=== PATIENT | male | born 1970 | race Caucasian/White ===

== ENCOUNTER 2020-11-29 20:25 | Inpatient (IN) | payer MEDICARE, MEDICAID, SELFPAY ==
[2020-11-29 22:00] VITALS: BP 120/77; PULSE 101; RESP 23; TEMP 37.2; O2SAT 92
--- NOTE | 2020-11-29 23:50 | PC.NURSE ---
Skin assessment bilateral tidwell to ankle redness noted, pt states he has Hx of MRSA.
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
[2020-11-30 06:00] VITALS: BP 117/73; PULSE 86; RESP 16; TEMP 36.8; O2SAT 96
--- NOTE | 2020-11-30 08:34 | PC.NUTR ---
Addendum entered by Tevin Riojas 11/30/20 08:36: Error below--although ht is inaccurate, pt also triggered with MST score of 4. Will assess within 48 hrs per policy. Original Note: Nutrition note: Pt screened at risk for low BMI due to error in ht. (541 ft noted--suspect 64 inches) No other nutrition risk factors noted at this time. Will assess at LOS or as needed per further consult.
[2020-11-30] MEDS: lamoTRIgine 100 mg Tablet 200 MG PO ×2 (08:49→17:14)
[2020-11-30] MEDS: pantoprazole DR 40 mg Tablet PO (08:49)
[2020-11-30] MEDS: benztropine 1 mg Tablet 2 MG PO ×2 (08:50→17:14)
[2020-11-30] MEDS: prazosin 1 mg Capsule 2 MG PO ×2 (08:50→17:14)
--- NOTE | 2020-11-30 12:25 | NPU.GN ---
[facility] Group Topic: Depression Bingo / Worrisome thoughts General Mood of Group: Appropriate behavior: Didn't participate much but listened to what was shared.
[2020-11-30] MEDS: ibuprofen 600 mg Tablet PO (12:42)
[2020-11-30] MEDS: hyDROXYzine 25 mg Capsule 50 MG PO (12:42)
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
[2020-11-30 14:00] VITALS: BP 108/68; PULSE 105; RESP 18; TEMP 36.8; O2SAT 96
--- NOTE | 2020-11-30 16:02 | PC.NUTR ---
Nutrition assessment completed for MST. Contacted floor regarding allergy to wheat per chart. Unable to confirm whether allergy is accurate, however staff states she will ask nurse to change pt to a gluten free diet. RD available as needed per consult. See full RD assessment for further details.
[2020-11-30] MEDS: OLANZapine 10 mg TABLET PO (20:55)
[2020-11-30] MEDS: trazodone 100 mg Tablet PO (20:55)
--- NOTE | 2020-11-30 21:00 | PC.NURSE ---
pt requested sleep med and zyprexa , zyprexa 5mg po for anxiety and trazodone 50mg po given.
[2020-11-30 22:00] VITALS: BP 127/78; PULSE 108; RESP 18; TEMP 37.1; O2SAT 96
--- NOTE | 2020-11-30 22:41 | PC.NURSE ---
pt requested anxiety and sleep meds. pt given zyprexa 5mg po for increased anxiety and trazodone 50mg po for sleep.
--- NOTE | 2020-11-30 22:43 | PC.NURSE ---
pt requested to be able to shave. pt monitored closely while using electric razor.
--- NOTE | 2020-11-30 22:45 | PC.NURSE ---
PT RESTING QUIETLY WITH BOTH EYES CLOSED
[2020-12-01 06:00] VITALS: BP 113/72; PULSE 85; RESP 17; TEMP 37; O2SAT 96
[2020-12-01] MEDS: nystatin 100,000 unit/mL UDC 5 mL 100000 UNIT PO (09:07)
[2020-12-01] MEDS: fluticasone nasal spray 16gm Btl 1 SPRAY NASAL ×2 (09:07→20:05)
[2020-12-01] MEDS: prazosin 1 mg Capsule 2 MG PO ×2 (09:08→20:05)
[2020-12-01] MEDS: pantoprazole DR 40 mg Tablet PO (09:08)
[2020-12-01] MEDS: lamoTRIgine 100 mg Tablet 200 MG PO ×2 (09:08→20:06)
[2020-12-01] MEDS: benztropine 1 mg Tablet 2 MG PO ×2 (09:08→20:06)
[2020-12-01] MEDS: ibuprofen 600 mg Tablet PO (09:54)
--- NOTE | 2020-12-01 11:56 | NPU.GN ---
[facility] Topic: Self Medicating General Mood of Group: Did not attend group
[2020-12-01] MEDS: guaiFENesin 600 mg Tablet PO ×2 (13:49→20:06)
[2020-12-01 14:00] VITALS: BP 132/76; PULSE 87; RESP 16; TEMP 36.8; O2SAT 99
[2020-12-01] MEDS: OLANZapine 5 mg ODT PO (14:18)
--- NOTE | 2020-12-01 14:18 | PC.NURSE ---
Addendum entered by Argentina Valera LPN 12/01/20 17:45: PRN MED EFFECTIVE NO FURTHER C/O PSYCHOSIS/PARANOIA Original Note: PRN ZYPREXA ZYDIS 5 MG GIVEN PO PER PT C/O PSYCHOSIS. PT STATED HE IS PARANOID THINKING PEOPLE ARE WATCHING HIM. WILL CONT TO MONITOR
--- NOTE | 2020-12-01 17:58 | PM.NPN ---
Subjective NPU Subjective: Interval history: Jeannie presents today continuing to have fogginess in communication. He reports that he has been working hard on getting better. But he cannot really articulate what that meant. He discussed some of his medical concerns being assessed and getting a hospitalist consult in the morning to make sure there is nothing being missed. Mental Status Exam MSE Comments: This is a slender possibly underweight white male in hospital scrubs with limited grooming and eye contact. Vital movements except for psychomotor retardation. Mostly cooperative with exam in no acute distress. Speech was decreased rate and volume and is and sometimes garbled. Less pauses as he was confused in delivering some answers. Mood described as okay affect was subdued and somewhat confused. Thought process disorganized, thought content: Patient endorsed suicidal ideation, but denied homicidal ideation, he endorsed paranoia and appeared somewhat guarded, he denied auditory or visual hallucinations. Attention and concentration were limited memory was intermittently reliable but none were formally tested. He is alert and oriented x3. Insight and judgment are impaired impulse control impaired. Vitals/I&O/Wt Last Vital Signs Temp 97.9 F 12/01/20 20:11 Pulse 94 12/01/20 20:11 Resp 21 H 12/01/20 20:11 BP 123/83 12/01/20 20:11 Pulse Ox 99 12/01/20 20:11 A&P Additional A&P Information (1) Methamphetamine dependence: (2) Altered mental status: (3) Psychosis: (4) HIV (human immunodeficiency virus infection): This is a 49-year-old white male who is HIV positive with a long history of mental health and addiction issues who presents with active methamphetamine addiction with likely psychosis as a consequence who presents fairly disorganized. 1. Continue current medication. 2. Continue every 15 minute checks for safety. 3. Encourage individual, group and milieu therapies. 4. Encourage sober living treatment after discharge at the highest level of care to which he is willing to commit. 5. Consider hospitalist consult in the morning as he expressed some concerns for thrush making sure his leg infection has been healing and making sure there are no other considerations for his HIV status that we have overlooked. Involuntary Hold Information 96 Hour Hold: 96 Hour Involuntary Admission: No Attestations NPU Medical Necessity Statement*: Inpatient hospitalization is medically necessary and the clinically appropriate intervention at this time. We will monitor medications and make changes as indicated. Likely length of stay 3 to 5 days. Coding Level of Care Code Acute Commercial Appraiser for Philip Luna
[2020-12-01] MEDS: OLANZapine 10 mg TABLET PO (20:06)
[2020-12-01] MEDS: trazodone 100 mg Tablet PO (20:06)
[2020-12-01 20:11] VITALS: BP 123/83; PULSE 94; RESP 21; TEMP 36.6; O2SAT 99
[2020-12-02 06:00] VITALS: BP 114/67; PULSE 82; RESP 17; TEMP 36.9; O2SAT 96
[2020-12-02] MEDS: lamoTRIgine 100 mg Tablet 200 MG PO ×2 (08:46→21:00)
[2020-12-02] MEDS: prazosin 1 mg Capsule 2 MG PO ×2 (08:46→22:07)
[2020-12-02] MEDS: benztropine 1 mg Tablet 2 MG PO ×2 (08:46→22:10)
[2020-12-02] MEDS: pantoprazole DR 40 mg Tablet PO (08:46)
[2020-12-02] MEDS: fluticasone nasal spray 16gm Btl 1 SPRAY NASAL ×2 (08:47→22:08)
[2020-12-02] MEDS: guaiFENesin 600 mg Tablet PO ×2 (08:47→22:11)
[2020-12-02] MEDS: nystatin 100,000 unit/mL UDC 5 mL 100000 UNIT PO (08:50)
[2020-12-02] MEDS: OLANZapine 5 mg ODT PO ×2 (09:33→15:00)
--- NOTE | 2020-12-02 09:40 | PC.NURSE ---
PRN Zyprexa 5mg Zyprexa given at this time. Patient reports increased anxiety and requests he be placed back on his Trileptal that he was taking prior to hospitalization.
--- NOTE | 2020-12-02 10:59 | PM.NPN ---
Subjective NPU Subjective: Interval history: Anival presents today reporting he still having some of the physical symptoms he described yesterday. Otherwise he is slowly seeming to have mild improvement in his cognition with the reintroduction of the medication. We agreed to stay the course and get a hospitalist consult for his medical concerns. Mental Status Exam MSE Comments: This is a slender possibly underweight white male in hospital scrubs with limited grooming and eye contact. No movements except for psychomotor retardation. More cooperative with exam in no acute distress. Speech was decreased rate and volume and is sometimes garbled. Less pauses as he was confused in delivering some answers. Mood described as a little better affect was subdued and less confused. Thought process disorganized, thought content: Patient endorsed suicidal ideation, but denied homicidal ideation, he endorsed paranoia and appeared somewhat guarded, he denied auditory or visual hallucinations. Attention and concentration were limited memory was intermittently reliable but none were formally tested. He is alert and oriented x3. Insight and judgment are impaired impulse control impaired. Vitals/I&O/Wt Last Vital Signs Temp 98.6 F 12/02/20 06:00 Pulse 85 12/02/20 06:00 Resp 17 12/02/20 06:00 BP 113/72 12/02/20 06:00 Pulse Ox 96 12/02/20 06:00 Data NPU : 12/03/20 06:05 12/03/20 06:05 A&P Additional A&P Information (1) Methamphetamine dependence: (2) Altered mental status: (3) Psychosis: (4) HIV (human immunodeficiency virus infection): This is a 49-year-old white male who is HIV positive with a long history of mental health and addiction issues who presents with active methamphetamine addiction with likely psychosis as a consequence who presents fairly disorganized. 1. Continue current medication. 2. Continue every 15 minute checks for safety. 3. Encourage individual, group and milieu therapies. 4. Encourage sober living treatment after discharge at the highest level of care to which he is willing to commit. 5. C appreciate hospitalist consult. Will await recommendations and follow as appropriate. Involuntary Hold Information 96 Hour Hold: 96 Hour Involuntary Admission: No Attestations NPU Medical Necessity Statement*: Inpatient hospitalization is medically necessary and the clinically appropriate intervention at this time. We will monitor medications and make changes as indicated. Likely length of stay 3 to 5 days. Coding Level of Care Code Acute Wind Project Manager for Philip Luna
--- NOTE | 2020-12-02 13:31 | PC.SOCIAL ---
IMM Update Discussed medicare rights with pt. Verbalized understanding. Gave pt a copy and placed initialed, timed and dated copy in chart.
[2020-12-02 13:55] VITALS: BP 114/69; PULSE 100; RESP 14; TEMP 36.7; O2SAT 97
[2020-12-02] MEDS: ibuprofen 600 mg Tablet PO (17:25)
--- NOTE | 2020-12-02 18:00 | P.CONIM_ITS ---
Providers/Reason For Consult Consulting Physician/Specialty*: Hospitalist Reason for Consult*: HIV Requesting Physician: Dr. Toney Attending Physician: Dameon Alcantar MD History of Present Illness History of Present Illness [id number] a past medical history significant for bipolar 1 disorder, ADHD,Schizoaffective disorder, methamphtamine abuse and HIV previously on Emtricitabine-Tenofovir 200-300 mg daily, Raltegavir 400 mg Po BID who is admitted to behavioral health unit with suicidal ideation. Medicine consulted for medical management of HIV. Patient was discharged on previously mentioned meds however it appears this was changed to Kwcphzsuo-Ubfiwsui-Nwiviszls 1 tab PO daily. patient stated he has not been compliant with his antiretrovirals. Has not followed up with his HIV clinic. No recent labs were drawn. Last known HIV labs on 06/2015 showed CD4% - 34, CD45% - 1.79 CD3 78 CD3 Absolute 1390 CD8 - 40 CD8 Absolute - 722 CD4/CD8 Ratio of 0.9 CD4 Absolute count of 614 No updated labs noted since 2016. No evidence of acute infectious process. No labs noted in [facility]. Patient states he follows up with HIV Clinic in [facility] Review of Systems General: Reports: 10 or more systems reviewed and unremarkable except in HPI and below Meds/Allergies Home Medications and Allergies Home Medications Medication Instructions Recorded Confirmed Last Taken Type benztropine 2 mg PO BID 11/29/20 11/29/20 Unknown History itqrxdcyz-gmnxfsvj-lgrjaec ala 1 tab PO DAILY 11/29/20 11/29/20 Unknown History [Biktarvy] fluticasone propionate 1 inh INHALATION BID 11/29/20 11/29/20 Unknown History lamotrigine [Lamictal] 200 mg PO BID 11/29/20 11/29/20 Unknown History nystatin 100,000 unit BUCCAL DAILY 11/29/20 11/29/20 Unknown History olanzapine 10 mg PO BEDTIME 11/29/20 11/29/20 Unknown History omeprazole [Prilosec] 20 mg PO DAILY 11/29/20 11/29/20 Unknown History prazosin 2 mg PO BID 11/29/20 11/29/20 Unknown History trazodone 100 mg PO BEDTIME 11/29/20 11/29/20 Unknown History oxcarbazepine [Trileptal] 200 mg PO BID 12/02/20 12/02/20 Unknown History Allergies Allergy/AdvReac Type Severity Reaction Status Date / Time cephalexin [From Keflex] Allergy Unknown Verified 11/29/20 23:02 efavirenz [From Sustiva] Allergy ALGY-Anaphy Verified 11/29/20 23:01 laxis sulfamethoxazole Allergy Unknown Verified 11/29/20 23:02 [From Bactrim] trimethoprim [From Bactrim] Allergy Unknown Verified 11/29/20 23:02 wheat Allergy ADR-Nausea Verified 11/29/20 23:01 Current Medications Current Medications Generic Name Dose Route Start Last Admin Trade Name Freq PRN Reason Stop Dose Admin Benztropine Mesylate 2 mg 12/01/20 21:00 12/02/20 08:46 Benztropine 1 Mg Tablet PO 2 mg 0900,2100 AMAYA Administration Fluticasone Propionate 1 spray 12/01/20 21:00 12/02/20 08:47 Fluticasone Nasal Bodega 16gm Btl NASAL 1 spray 0900,2100 AMAYA Administration Guaifenesin 600 mg 12/01/20 21:00 12/02/20 08:47 Guaifenesin 600 Mg Tablet PO 600 mg 0900,2100 AMAYA Administration Hydroxyzine Pamoate 50 mg 11/29/20 20:31 11/30/20 12:42 Hydroxyzine 25 Mg Capsule PO 50 mg Q6H PRN Administration ANXIETY Ibuprofen 600 mg 11/29/20 23:52 12/02/20 17:25 Ibuprofen 600 Mg Tablet PO 600 mg Q6H PRN Administration MODERATE PAIN Lamotrigine 200 mg 12/01/20 21:00 12/02/20 08:46 Lamotrigine 100 Mg Tablet PO 200 mg 0900,2100 AMAYA Administration Non-Formulary Medication 1 tab 11/30/20 09:00 12/02/20 09:42 Akohmcbzn-Rccxqrcx-Psmctxw Ala [Biktarvy] PO Not Given DAILY AMAYA Nystatin 100,000 unit 11/30/20 09:00 12/02/20 08:50 Nystatin 100,000 Unit/Ml Udc 5 Ml PO 100,000 unit DAILY AMAYA Administration Olanzapine 5 mg 11/29/20 20:31 12/02/20 15:00 Olanzapine 5 Mg Odt PO 5 mg Q4H PRN Administration Agitation/Psychosis Olanzapine 10 mg 11/30/20 21:00 12/01/20 20:06 Olanzapine 10 Mg Tablet PO 10 mg BEDTIME AMAYA Administration Pantoprazole Sodium 40 mg 11/30/20 09:00 12/02/20 08:[address] 40 Mg Tablet PO 40 mg DAILY AMAYA Administration Prazosin HCl 2 mg 12/01/20 21:00 12/02/20 08:46 Prazosin 1 Mg Capsule PO 2 mg 0900,2100 AMAYA Administration Trazodone HCl 100 mg 11/30/20 21:00 12/01/20 20:06 Trazodone 100 Mg Tablet PO 100 mg BEDTIME AMAYA Administration PFSH Acute PFSH: Medical History (Updated 12/02/20 @ 20:09 by Neno Loomis MD) ADHD Hepatitis A HIV (human immunodeficiency virus infection) No pertinent family history Schizoaffective disorder Surgical History (Updated 12/02/20 @ 20:09 by Neno Loomis MD) No pertinent past surgical history Social History (Updated 12/02/20 @ 20:10 by Neno Loomis MD) Smoking and tobacco status: unknown if ever smoked Alcohol intake: never Substance/Drug Use: current Substance/Drug use type: Methamphetamine Vitals/I&O/Wt Last Vital Signs Temp 98.1 F 12/02/20 13:55 Pulse 100 12/02/20 13:55 Resp 14 12/02/20 13:55 BP 114/69 12/02/20 13:55 Pulse Ox 97 12/02/20 13:55 Physical Exam Narrative: EXAM NARRATIVE: General-Alert awake and oriented HEENT- grossly unremarkable CVS- no complaints Chest- nonlabored respiration Abdomen -nondistended Extremities- no edema A&P Assessment and plan (1) HIV (human immunodeficiency virus infection): Patient restarted on anti-retroviral meds Will check HIV labs in am Prior labs noted in HPI Unclear if patient has been compliant Will obtain further prior records from HIV clinic No evidence of acute infection CBC/CMP in am Will discuss with infectious disease Status: Acute (2) Hepatitis A: History unlcear CMP in am Hepatitis panel in am Status: Acute (3) Methamphetamine dependence: Monitor for withdrawals Status: Acute (4) Suicidal ideation: Management per psych Status: Acute Consult Attestations Medical Necessity Statement: Continue hospitalization for management of suicidal ideations. Discharge planning per Psychiatry. Time Spent in Patient Care: Greater than 35 minutes (>than 50% of time spent in counselling and/or direct pt care on unit) . Coding Level of Care Code Acute Supervisor [employer] for g Fwd Diagnoses HIV (human immunodeficiency virus infection) B20 Hepatitis A B15.9 Methamphetamine dependence F15.20 Suicidal ideation R45.851
[2020-12-02] MEDS: calcium carbonate 500 mg Chew Tablet 1000 MG PO (18:31)
[2020-12-02 20:26] VITALS: BP 121/78; PULSE 89; RESP 19; TEMP 36.7; O2SAT 97
[2020-12-02] MEDS: simethicone 80 mg Chew PO (22:06)
[2020-12-02] MEDS: trazodone 100 mg Tablet PO (22:07)
[2020-12-03 06:00] VITALS: BP 110/66; PULSE 85; RESP 18; TEMP 36.7; O2SAT 98
[2020-12-03 06:18] LABS: Basophils # 0.1 10^3/uL (0.0-0.1); Basophils % 1.4 %; Eosinophils # 0.3 10^3/uL (0.0-0.8); Eosinophils % 6.6 %; Hematocrit 40.3 % (42.0-52.0); Hemoglobin 13.3 g/dL (11.7-16.6); Lymphocytes # 2.1 10^3/uL (0.8-4.8); Lymphocytes % 42.5 %; Mean Corpuscular Volume 97.1 fl (80-94); Mean Platelet Volume 9.2 fL (7.4-10.4); Monocytes # 0.7 10^3/uL (0.2-0.9); Monocytes % 14.1 %; Neutrophils # 1.75 10^3/uL (1.8-7.7); Neutrophils % 34.8 %; Nucleated Red Blood Cells % 0 %; Platelet Count 294 10^3/cmm (130-400); Red Blood Count 4.15 10^6/uL (4.1-5.3); Red Cell Distribution Width 11.5 % (12.1-15.1)
[2020-12-03 06:45] LABS: Alanine Aminotransferase 49 U/L (0-41); Albumin Level 3.4 g/dL (3.5-5.2); Alkaline Phosphatase 134 IU/L (40-130); Anion Gap 12.2 (5-19); Aspartate Amino Transferase 34 U/L (0-40); Blood Urea Nitrogen 19 mg/dL (6-20); Calcium 8.6 mg/dL (8.5-10.5); Carbon Dioxide 26 mmol/L (22-29); Chloride 107 mmol/L (98-107); Globulin 2.4 g/dL (1.3-4.6); Glomerular Filtration Rate 120.9 mL/min (90-130); Glucose 100 mg/dL (65-115); Osmolality Calculated 294 mOsm/kg (285-295); Potassium 4.2 mmol/L (3.5-5.1); Sodium 141 mmol/L (136-145); Total Bilirubin 0.2 mg/dL (0.15-1.2); Total Protein 5.8 g/dL (6.6-8.7)
[2020-12-03 06:58] LABS: Hepatitis A Antibody IgM Non-Reactive (Nonreactive); Hepatitis B Core IgM Non-Reactive (Nonreactive); Hepatitis B Surface Antigen Non-Reactive (Nonreactive); Hepatitis C Virus Antibody Non-Reactive (Nonreactive)
--- NOTE | 2020-12-03 08:39 | PC.NUTR ---
Nutrition follow up: Gluten Free diet in place r/t wheat allergy. Recommend obtain current ht, given current ht documented as 541 ft. Noted pt possibly underweight per MD notes. See full RD assessment for further details.
[2020-12-03] MEDS: fluticasone nasal spray 16gm Btl 1 SPRAY NASAL ×2 (09:19→22:15)
[2020-12-03] MEDS: nystatin 100,000 unit/mL UDC 5 mL 100000 UNIT PO (09:19)
[2020-12-03] MEDS: benztropine 1 mg Tablet 2 MG PO ×2 (09:21→22:15)
[2020-12-03] MEDS: pantoprazole DR 40 mg Tablet PO (09:22)
[2020-12-03] MEDS: simethicone 80 mg Chew PO (09:22)
[2020-12-03] MEDS: prazosin 1 mg Capsule 2 MG PO ×2 (09:22→22:15)
[2020-12-03] MEDS: guaiFENesin 600 mg Tablet PO ×2 (09:22→22:16)
[2020-12-03] MEDS: lamoTRIgine 100 mg Tablet 200 MG PO ×2 (09:22→22:14)
[2020-12-03 14:00] VITALS: BP 104/71; PULSE 100; RESP 20; TEMP 36.5; O2SAT 95
--- NOTE | 2020-12-03 16:17 | PM.PN ---
Subjective Subjective: Interval history: [id number] a past medical history significant for bipolar 1 disorder, ADHD,Schizoaffective disorder, methamphtamine abuse and HIV previously on Emtricitabine-Tenofovir 200-300 mg daily, Raltegavir 400 mg Po BID who is admitted to behavioral health unit with suicidal ideation. Medicine consulted for medical management of HIV. Patient was discharged on previously mentioned meds however it appears this was changed to Zorjxbccf-Jcstbyrk-Krhorlifv 1 tab PO daily. patient stated he has not been compliant with his antiretrovirals. Has not followed up with his HIV clinic. No recent labs were drawn. Last known HIV labs on 06/2015 showed CD4% - 34, CD45% - 1.79 CD3 78 CD3 Absolute 1390 CD8 - 40 CD8 Absolute - 722 CD4/CD8 Ratio of 0.9 CD4 Absolute count of 614 No updated labs noted since 2016. No evidence of acute infectious process. No labs noted in [facility]. Patient states he follows up with HIV Clinic in [facility] 12/03 No new clinical events Vitals/I&O/Wt Last Vital Signs Temp 97.7 F 12/03/20 14:00 Pulse 100 12/03/20 14:00 Resp 20 H 12/03/20 14:00 BP 104/71 12/03/20 14:00 Pulse Ox 95 12/03/20 14:00 Physical Exam Narrative: EXAM NARRATIVE: General-Alert awake and oriented HEENT- grossly unremarkable CVS- no complaints Chest- nonlabored respiration Abdomen -nondistended Extremities- no edema Data : 12/03/20 06:05 12/03/20 06:05 A&P Assessment and plan (1) HIV (human immunodeficiency virus infection): Patient restarted on anti-retroviral meds Will check HIV labs once records received from outside facility ( d/w Nursing staff) Prior labs noted in HPI Unclear if patient has been compliant Will obtain further prior records from HIV clinic - pending No evidence of acute infection CBC/CMP noted Follow up outpatient with HIV clinic Status: Acute (2) Hepatitis A: Patient note acute infection in 1994 May need hepatitis B vaccine CMP noted - stable LFTs Hepatitis panel noted Status: Acute (3) Methamphetamine dependence: Monitor for withdrawals Status: Acute (4) Suicidal ideation: Management per psych Status: Acute Attestations Medical Necessity Statement*: Will require further hospitalization as per primary psych team Time Spent in Patient Care: 16 - 35 minutes (>than 50% of time spent in counselling and/or direct pt care on unit). Coding Level of Care Code Acute Capacitor Inspector for Philip Luna Diagnoses HIV (human immunodeficiency virus infection) B20 Hepatitis A B15.9 Methamphetamine dependence F15.20 Suicidal ideation R45.851
[2020-12-03] MEDS: magnesium hydroxide 30 mL UDC PO (17:29)
[2020-12-03 20:37] VITALS: BP 131/77; PULSE 101; RESP 18; TEMP 37.5; O2SAT 97
[2020-12-03] MEDS: trazodone 100 mg Tablet PO (22:14)
[2020-12-03] MEDS: hyDROXYzine 25 mg Capsule 50 MG PO (22:16)
--- NOTE | 2020-12-03 22:18 | PM.NPN ---
Subjective NPU Subjective: Interval history: Anival presented today following some improved clarity of communication. He notified that noted difficulty with methamphetamine and he really needed to contact with what that entailed her parents. Revisited above hospitalist consult and getting himself back on track medically. We agreed we are looking at his psychiatric medication however it is clear that the likely major trigger to his presentation is his drug use. Mental Status Exam MSE Comments: This is a slender possibly underweight white male in hospital scrubs with limited grooming and eye contact. No movements except for psychomotor retardation with showing little improvement. More cooperative with exam in no acute distress. Speech was decreased rate and volume with improved clarity. Less pauses and confusion in delivering some answers. Mood described as a little better, affect was subdued. Thought process more organized, thought content: Patient denied suicidal or homicidal ideation, he endorsed lessening paranoia and appeared less guarded, he denied auditory or visual hallucinations. Attention and concentration were improving memory was more reliable but none were formally tested. He is alert and oriented x3. Insight and judgment are limited, but improving impulse control limited. Vitals/I&O/Wt Last Vital Signs Temp 99.5 F 12/03/20 20:37 Pulse 101 H 12/03/20 20:37 Resp 18 12/03/20 20:37 BP 131/77 12/03/20 20:37 Pulse Ox 97 12/03/20 20:37 Data NPU : 12/03/20 06:05 12/03/20 06:05 A&P Additional A&P Information (1) Methamphetamine dependence: (2) Altered mental status: (3) Psychosis: (4) HIV (human immunodeficiency virus infection): This is a 49-year-old white male who is HIV positive with a long history of mental health and addiction issues who presents with active methamphetamine addiction with likely psychosis as a consequence who presents fairly disorganized. 1. Continue current medication. 2. Continue every 15 minute checks for safety. 3. Encourage individual, group and milieu therapies. 4. Encourage sober living treatment after discharge at the highest level of care to which he is willing to commit. 5. Appreciate hospitalist consult. Will await recommendations and follow as appropriate. Involuntary Hold Information 96 Hour Hold: 96 Hour Involuntary Admission: No Attestations NPU Medical Necessity Statement*: Inpatient hospitalization is medically necessary and the clinically appropriate intervention at this time. We will monitor medications and make changes as indicated. Likely length of stay 2-4 days. Coding Level of Care Code Acute Linux Unix System Administrator for Philip Luna
[2020-12-03] MEDS: ibuprofen 600 mg Tablet PO (23:51)
[2020-12-04 06:00] VITALS: BP 106/65; PULSE 78; RESP 16; TEMP 36.9; O2SAT 97
[2020-12-04] MEDS: guaiFENesin 600 mg Tablet PO ×2 (10:52→20:22)
[2020-12-04] MEDS: fluticasone nasal spray 16gm Btl 1 SPRAY NASAL ×2 (10:53→21:59)
[2020-12-04] MEDS: nystatin 100,000 unit/mL UDC 5 mL 100000 UNIT PO (10:53)
[2020-12-04] MEDS: benztropine 1 mg Tablet 2 MG PO ×2 (10:54→20:22)
[2020-12-04] MEDS: lamoTRIgine 100 mg Tablet 200 MG PO ×2 (10:54→20:22)
[2020-12-04] MEDS: pantoprazole DR 40 mg Tablet PO (10:55)
[2020-12-04] MEDS: prazosin 1 mg Capsule 2 MG PO ×2 (10:55→20:22)
--- NOTE | 2020-12-04 12:10 | P.PN_ITS ---
Subjective NPU Subjective: Interval history: Anival presents today reporting that he is feeling a little better. He is continuing to slowly but surely clear in what is likely drug-induced psychosis. He is able to communicate by large in a more organized fashion and is starting to be able to discuss the logistics of life and post discharge. He reports that he reached out to his family who are willing to be supportive in his recovery. Mental Status Exam MSE Comments: This is a slender possibly underweight white male in hospital scrubs with limited grooming and eye contact. No movements except for psychomotor retardation with improvement. More cooperative with exam in no acute distress. Speech was decreased rate and volume with improved clarity. Less pauses and confusion in delivering some answers. Mood described as a little better, affect was subdued. Thought process more organized, thought content: Patient denied suicidal or homicidal ideation, he endorsed lessening paranoia and appeared less guarded, he denied auditory or visual hallucinations. Attention and concentration were improving memory was more reliable but none were formally tested. He is alert and oriented x3. Insight and judgment are limited, but improving impulse control limited. Vitals/I&O/Wt Last Vital Signs Temp 98.4 F 12/04/20 06:00 Pulse 78 12/04/20 06:00 Resp 16 12/04/20 06:00 BP 106/65 12/04/20 06:00 Pulse Ox 97 12/04/20 06:00 Weight last 48 hrs Weight 65.771 kg Weight 65.771 kg Data NPU : 12/03/20 06:05 12/03/20 06:05 A&P Additional A&P Information (1) Methamphetamine dependence: (2) Altered mental status: (3) Psychosis: (4) HIV (human immunodeficiency virus infection): This is a 49-year-old white male who is HIV positive with a long history of mental health and addiction issues who presents with active methamphetamine addiction with likely psychosis as a consequence who presents fairly disorganized. 1. Continue current medication. 2. Continue every 15 minute checks for safety. 3. Encourage individual, group and milieu therapies. 4. Encourage sober living treatment after discharge at the highest level of care to which he is willing to commit. 5. Appreciate hospitalist consult. Will monitor recommendations and follow as appropriate. Involuntary Hold Information 96 Hour Hold: 96 Hour Involuntary Admission: No Attestations NPU Medical Necessity Statement*: Inpatient hospitalization is medically necessary and the clinically appropriate intervention at this time. We will monitor medications and make changes as indicated. Likely length of stay 2-3 days. Coding Level of Care Code Acute Assistant Tennis Coach for Philip Luna
[2020-12-04] MEDS: magnesium hydroxide 30 mL UDC PO (13:23)
[2020-12-04 14:00] VITALS: BP 110/77; PULSE 98; RESP 20; TEMP 36.8; O2SAT 98
[2020-12-04] MEDS: trazodone 100 mg Tablet PO (20:22)
[2020-12-04 20:35] VITALS: BP 119/86; PULSE 100; RESP 22; TEMP 37.2; O2SAT 97
[2020-12-05 06:00] VITALS: BP 102/64; PULSE 64; RESP 17; TEMP 36.7; O2SAT 96
[2020-12-05] MEDS: ibuprofen 600 mg Tablet PO ×2 (06:34→22:26)
[2020-12-05] MEDS: benztropine 1 mg Tablet 2 MG PO ×2 (08:55→22:28)
[2020-12-05] MEDS: lamoTRIgine 100 mg Tablet 200 MG PO ×2 (08:55→22:27)
[2020-12-05] MEDS: guaiFENesin 600 mg Tablet PO ×2 (08:55→22:30)
[2020-12-05] MEDS: prazosin 1 mg Capsule 2 MG PO ×2 (08:55→21:45)
[2020-12-05] MEDS: pantoprazole DR 40 mg Tablet PO (08:55)
[2020-12-05] MEDS: fluticasone nasal spray 16gm Btl 1 SPRAY NASAL ×2 (08:56→22:29)
--- NOTE | 2020-12-05 10:10 | PM.NPN ---
Subjective NPU Subjective: Interval history: Luis presents today having improvement in his communicative abilities. In discussing his parents as a viable vehicle in his recovery. He is able to even joke a little about how confused he was at the gets clear. Reports the medications have been helping and he denies any side effects or other concerns. Mental Status Exam MSE Comments: This is a slender possibly underweight white male in hospital scrubs with improving grooming and eye contact. No abnormal movements except for resolving psychomotor retardation. More cooperative with exam in no acute distress. Speech was more normal rate and volume with improved clarity. Mood described as better, affect congruent and brighter. Thought process more organized, thought content: Patient denied suicidal or homicidal ideation, there were no delusions reported or noted,, he denied auditory or visual hallucinations. Attention and concentration were improving memory was more reliable but none were formally tested. He is alert and oriented x3. Insight and judgment are limited, but improving impulse control limited, but improving. Vitals/I&O/Wt Last Vital Signs Temp 98.1 F 12/05/20 06:00 Pulse 64 12/05/20 06:00 Resp 17 12/05/20 06:00 BP 102/64 12/05/20 06:00 Pulse Ox 96 12/05/20 06:00 Weight last 48 hrs Weight 65.771 kg Weight 65.771 kg Data NPU : 12/03/20 06:05 12/03/20 06:05 A&P Additional A&P Information (1) Methamphetamine dependence: (2) Altered mental status: (3) Psychosis: (4) HIV (human immunodeficiency virus infection): This is a 49-year-old white male who is HIV positive with a long history of mental health and addiction issues who presents with active methamphetamine addiction with likely psychosis as a consequence who presents fairly disorganized. 1. Continue current medication. 2. Continue every 15 minute checks for safety. 3. Encourage individual, group and milieu therapies. 4. Encourage sober living treatment after discharge at the highest level of care to which he is willing to commit. 5. Appreciate hospitalist consult. Will monitor recommendations and follow as appropriate. Involuntary Hold Information 96 Hour Hold: 96 Hour Involuntary Admission: No Attestations NPU Medical Necessity Statement*: Inpatient hospitalization is medically necessary and the clinically appropriate intervention at this time. We will monitor medications and make changes as indicated. Likely length of stay 1-3 days. Coding Level of Care Code Acute Park Landscape Architect for Philip Luna
[2020-12-05] MEDS: nystatin 100,000 unit/mL UDC 5 mL 100000 UNIT PO (13:04)
[2020-12-05 14:00] VITALS: BP 121/81; PULSE 94; RESP 12; TEMP 36.7; O2SAT 97
[2020-12-05 20:47] VITALS: BP 117/80; PULSE 97; RESP 19; TEMP 37.3; O2SAT 94
[2020-12-05] MEDS: trazodone 100 mg Tablet PO (21:45)
[2020-12-05] MEDS: OLANZapine 10 mg TABLET PO (21:45)
[2020-12-06 06:00] VITALS: BP 101/67; PULSE 88; RESP 18; TEMP 37.1; O2SAT 96
[2020-12-06] MEDS: ibuprofen 600 mg Tablet PO (07:33)
[2020-12-06] MEDS: guaiFENesin 600 mg Tablet PO (10:00)
[2020-12-06] MEDS: nystatin 100,000 unit/mL UDC 5 mL 100000 UNIT PO (10:00)
[2020-12-06] MEDS: lamoTRIgine 100 mg Tablet 200 MG PO (10:00)
[2020-12-06] MEDS: pantoprazole DR 40 mg Tablet PO (10:00)
[2020-12-06] MEDS: fluticasone nasal spray 16gm Btl 1 SPRAY NASAL (10:01)
[2020-12-06] MEDS: prazosin 1 mg Capsule 2 MG PO (10:01)
[2020-12-06] MEDS: benztropine 1 mg Tablet 2 MG PO (10:01)
--- NOTE | 2020-12-06 11:27 | PC.SOCIAL ---
IMM Update Discussed medicare rights with pt. Verbalized understanding. Gave pt a copy and place initialed, timed and dated copy in chart.
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
[2020-12-06 13:58] VITALS: BP 124/73; PULSE 95; RESP 16; TEMP 36.7; O2SAT 95
[2020-12-06 14:04] VITALS: BP 124/73; PULSE 95; RESP 16; TEMP 36.7; O2SAT 95
== END 2020-12-06 17:42 | disposition home or self-care (01) | DRG 885 ==
PROVIDERS: Hospitalist; Admitting Provider Psychiatry & Neurology Child & Adolescent Psychiatry; Visit Provider Psychiatry & Neurology Child & Adolescent Psychiatry
DX: F23 Brief psychotic disorder (principal); R45.851 Suicidal ideations; F15.20 Other stimulant dependence, uncomplicated; B20 Human immunodeficiency virus [HIV] disease; B15.9 Hepatitis A without hepatic coma; Z91.5 Personal history of self-harm; Z59.0 Homelessness; F90.9 Attention-deficit hyperactivity disorder, unspecified type; F25.0 Schizoaffective disorder, bipolar type
CPT/HCPCS: 36415; 80053; 80074; 85025